=== PATIENT | male | born 1995 | race Caucasian/White ===

== ENCOUNTER → 2017-10-09 | Outpatient (CLI) | payer OTHER ==
[2017-10-09 13:49] LABS: BASO % 0.6 %; BASO ABS # 0.03 K/uL (0-0.2); EOS ABS # 0.16 K/uL (0-0.5); HEMATOCRIT 43.7 % (42-52); HEMOGLOBIN 15.7 g/dL (14.0-18.0); IG# 0.01 K/uL (0.00-0.02); LYMPH % 44.8 %; LYMPH ABS # 2.41 K/uL (1.2-3.4); MEAN CELL VOLUME 79.9 fL (80-100); MEAN CORPUSCULAR HEMOGLOBIN 28.7 pg (25-34); MEAN CORPUSCULAR HGB CONC 35.9 g/dl (32-36); MEAN PLATELET VOLUME 9.6 fL (7.4-10.4); MONO % 10.4 %; MONO ABS # 0.56 K/uL (0.11-0.59); NEUT ABS # 2.21 K/uL (1.4-6.5); PLATELET COUNT 319 K/uL (130-400); RED CELL DISTRIBUTION WIDTH CV 12.6 % (11.5-14.5); RED CELL DISTRIBUTION WIDTH SD 36.4 fL (36.4-46.3); WHITE BLOOD COUNT 5.38 K/uL (4.8-10.8)
== END | disposition home or self-care (01) ==
LOC: C.LABBC 10:48
PROVIDERS: ATTEND Pediatrics
DX: F41.9 Anxiety disorder, unspecified (principal)